=== PATIENT | female | born 1960 | race Caucasian/White ===

== ENCOUNTER → 2017-01-14 | Outpatient (CLI) | payer OTHER ==
--- NOTE | 2017-01-14 11:54 | REPMRS ---
Patient History The patient states she has not had a clinical breast exam in over a year. Patient is postmenopausal. Family history of colorectal cancer in brother at age 50 or over. Taking estrogen for 1 year. Digital Woman Screen Mammo: January 14, 2017 - Exam #: [id number] Bilateral CC and MLO view(s) were taken. Technologist: Jayda Bender, Technologist Prior study comparison: September 22, 2014, digital woman screen mammo performed at [facility]. July 20, 2012, digital woman screen mammo performed at [facility] to [facility]. FINDINGS: There are scattered fibroglandular densities. There has been no change in the appearance of the mammogram from the prior studies. There is a mild amount of scattered fibroglandular density which is fairly symmetric. There is no interval development of dominant mass, architectural distortion, or clustered microcalcification suggestive of malignancy. ASSESSMENT: BI-RADS/ACR category 1 mammogram. Negative. Recommendation Routine screening mammogram in 1 year (for women over age 40). This mammogram was interpreted with the aid of an FDA-approved computer-aided dectection system. Electronically Signed By: Ab Tyson MD 01/14/17 [id number]
== END ==
LOC: M WHC 10:24
PROVIDERS: ATTEND Family Medicine Addiction Medicine
DX: Z12.31 Encounter for screening mammogram for malignant neoplasm of breast (principal)

== ENCOUNTER → 2017-01-14 | Outpatient (CLI) | payer OTHER ==
[2017-01-14 14:35] LABS: ALBUMIN 3.8 GM/DL (3.2-5.2); ALBUMIN/GLOBULIN RATIO 1.15 (1.00-1.93); ALKALINE PHOSPHATASE 109 U/L (45-117); ALT/SGPT 28 U/L (12-78); ANION GAP 8 MEQ/L (8-16); AST/SGOT 14 U/L (15-37); BILIRUBIN,TOTAL 0.5 MG/DL (0.2-1.0); BLOOD UREA NITROGEN 16 MG/DL (7-18); CALCIUM LEVEL 8.9 MG/DL (8.5-10.1); CARBON DIOXIDE LEVEL 27 MEQ/L (21-32); CHLORIDE LEVEL 107 MEQ/L (98-107); CHOLESTEROL LEVEL 153 MG/DL (<200); CREATININE FOR GFR 0.89 MG/DL (0.55-1.02); GLOMERULAR FILTRATION RATE > 60.0 (>51); GLUCOSE, FASTING 97 MG/DL (70-105); POTASSIUM SERUM 4.1 MEQ/L (3.5-5.1); SODIUM LEVEL 142 MEQ/L (136-145); TOTAL PROTEIN 7.1 GM/DL (6.4-8.2); TRIGLYCERIDES LEVEL 143 MG/DL (<150)
== END ==
LOC: M WUC 09:57
PROVIDERS: ATTEND Family Medicine Addiction Medicine
DX: E55.9 Vitamin D deficiency, unspecified (principal); R79.89 Other specified abnormal findings of blood chemistry; E05.90 Thyrotoxicosis, unspecified without thyrotoxic crisis or storm

== ENCOUNTER → 2017-05-28 | Outpatient (CLI) | payer OTHER ==
--- NOTE | 2017-05-29 14:27 | REP ---
Clinical: Back pain. Technique: AP, lateral, coned-down views of the lumbosacral spine. Findings: Alignment and lordosis maintained. No acute fracture / compression injury or subluxation. Minimal age-related findings appreciated without significant, overt degenerative disc osteophyte changes. Impression: Age-related degenerative changes. If the patient remains symptomatic consider MRI for further investigation. Signed by Parish Small MD 05/28/2017 08:33 P
== END ==
LOC: M WUC 15:09
PROVIDERS: ATTEND Family Medicine Addiction Medicine
DX: M54.9 Dorsalgia, unspecified (principal); E55.9 Vitamin D deficiency, unspecified

== ENCOUNTER → 2017-07-08 | Outpatient (CLI) | payer OTHER ==
--- NOTE | 2017-07-10 09:06 | DEXA ---
AP SPINE L1 - L4 1.087 -0.9 0.1 LT FEMUR TOTAL 0.862 -1.2 -0.4 RT FEMUR TOTAL 0.857 -1.2 -0.4 TOTAL BODY TOTAL OTHER DUAL FEMUR FRAX* ASSESSMENT Risk factors: 10 year probability of fracture Major osteoporotic fracture % Hip fracture % COMMENTS: Normal bone densitometry of the spine. There is low bone density of the hips. FOLLOW-UP: Recommendation for the next bone density exam: 2 years. JYOTID
== END ==
LOC: M WHC 12:32
PROVIDERS: ATTEND Family Medicine Addiction Medicine
DX: E55.9 Vitamin D deficiency, unspecified (principal)

== ENCOUNTER → 2018-04-26 | Outpatient (REF) | payer OTHER, MEDICAID ==
[2018-04-26 18:49] LABS: ALBUMIN 4.1 GM/DL (3.2-5.2); ALBUMIN/GLOBULIN RATIO 1.17 (1.00-1.93); ALKALINE PHOSPHATASE 126 U/L (45-117); ALT/SGPT 32 U/L (12-78); ANION GAP 13 MEQ/L (8-16); AST/SGOT 17 U/L (7-37); BILIRUBIN,TOTAL 0.7 MG/DL (0.2-1.0); BLOOD UREA NITROGEN 20 MG/DL (7-18); CALCIUM LEVEL 9.3 MG/DL (8.5-10.1); CARBON DIOXIDE LEVEL 23 MEQ/L (21-32); CHLORIDE LEVEL 108 MEQ/L (98-107); CHOLESTEROL LEVEL 166 MG/DL (<200); CHOLESTEROL RISK RATIO 2.964 (<5); CREATININE FOR GFR 0.92 MG/DL (0.55-1.30); GLOMERULAR FILTRATION RATE > 60.0 (>51); GLUCOSE, FASTING 97 MG/DL (70-100); HDL CHOLESTEROL 56 MG/DL (>40); LDL CHOLESTEROL 85.4 MG/DL (<100); NON-HDL-C 110 MG/DL; POTASSIUM SERUM 4.4 MEQ/L (3.5-5.1); SODIUM LEVEL 144 MEQ/L (136-145); TOTAL PROTEIN 7.6 GM/DL (6.4-8.2); TRIGLYCERIDES LEVEL 123 MG/DL (<150)
[2018-04-26 18:57] LABS: TOTAL 25(OH) VITAMIN D 115.7 NG/ML (30.0-100.0)
== END ==
LOC: M LAB REF 17:15
DX: E05.90 Thyrotoxicosis, unspecified without thyrotoxic crisis or storm (principal); E55.9 Vitamin D deficiency, unspecified

== ENCOUNTER → 2018-12-23 | Outpatient (REF) | payer OTHER, MEDICAID ==
[2018-12-23 19:00] LABS: ALBUMIN 4.2 GM/DL (3.2-5.2); ALT/SGPT 30 U/L (12-78); BILIRUBIN,TOTAL 0.9 MG/DL (0.2-1.0); BLOOD UREA NITROGEN 14 MG/DL (7-18); CALCIUM LEVEL 8.9 MG/DL (8.5-10.1); CARBON DIOXIDE LEVEL 21 MEQ/L (21-32); CHLORIDE LEVEL 107 MEQ/L (98-107); CHOLESTEROL LEVEL 142 MG/DL (<200); CHOLESTEROL RISK RATIO 2.327 (<5); CREATININE FOR GFR 0.86 MG/DL (0.55-1.30); GLOMERULAR FILTRATION RATE > 60.0 (>51); GLUCOSE, FASTING 90 MG/DL (70-100); HDL CHOLESTEROL 61 MG/DL (>40); LDL CHOLESTEROL 61 MG/DL (<100); NON-HDL-C 81 MG/DL; POTASSIUM SERUM 3.7 MEQ/L (3.5-5.1); SODIUM LEVEL 139 MEQ/L (136-145); THYROID STIMULATING HORMONE 0.487 uIU/ML (0.358-3.740); TOTAL PROTEIN 7.4 GM/DL (6.4-8.2); TRIGLYCERIDES LEVEL 100 MG/DL (<150)
[2018-12-23 19:03] LABS: TOTAL 25(OH) VITAMIN D 52.3 NG/ML (30.0-100.0)
== END ==
LOC: M LAB REF 17:15
PROVIDERS: ATTEND Family Medicine Addiction Medicine
DX: E55.9 Vitamin D deficiency, unspecified (principal); E05.90 Thyrotoxicosis, unspecified without thyrotoxic crisis or storm

== ENCOUNTER 2019-04-25 11:25 | Emergency (ER) | payer MEDICAID, OTHER ==
[~2019-04-25] VITALS: Ht 157.5 cm; Wt 65.0 kg
[2019-04-25 12:16] LABS: BASO % 0.4 % (0.0-1.0); EOS # 0.3 10^3/uL (0.0-0.50); EOS % 2.6 % (0.0-3.0); HEMATOCRIT 41.6 % (36.0-47.0); HEMOGLOBIN 13.9 g/dl (12.0-15.5); LYMPH # 1.8 10^3/uL (1.5-4.5); MEAN CORPUSCULAR HEMOGLOBIN 32.4 pg (27.0-33.0); MEAN CORPUSCULAR HGB CONC 33.4 g/dl (32.0-36.5); MONO # 0.4 10^3/uL (0.0-0.8); MONO % 3.9 % (0.0-5.0); NEUTROPHILS # 8.7 10^3/uL (1.8-7.7); NEUTROPHILS % 76.7 % (36.0-66.0); PLATELET COUNT, AUTOMATED 437 10^3/uL (150-450); RED BLOOD COUNT 4.29 10^6/uL (4.00-5.40); WHITE BLOOD COUNT 11.4 10^3/uL (4.0-10.0)
[2019-04-25 12:42] LABS: ALBUMIN 4.4 GM/DL (3.2-5.2); BILIRUBIN,DIRECT 0.3 MG/DL (0.0-0.2); BILIRUBIN,TOTAL 1.1 MG/DL (0.2-1.0); CALCIUM LEVEL 9.8 MG/DL (8.5-10.1); CREATININE FOR GFR 1.1 MG/DL (0.55-1.30); GLOMERULAR FILTRATION RATE 54.1 (>51); POTASSIUM SERUM 4.2 MEQ/L (3.5-5.1); TOTAL PROTEIN 8.5 GM/DL (6.4-8.2)
--- NOTE | 2019-04-25 14:59 | REP ---
Clinical: Right flank pain. Technique: Axial noncontrast images from the lung bases to the pubic symphysis with coronal and sagittal re-formations. Findings: Right-sided hydroureteronephrosis with periureteral stranding secondary to a 5 mm calculus at the ureterovesical junction likely about to pass into the bladder. 2 mm nonobstructing right renal calculus is also identified. The left kidney is without hydroureteronephrosis or nephroureterolithiasis. Liver, spleen, atrophic pancreas, bilateral adrenal glands and gallbladder appear normal. The enteric system is without obstruction or acute inflammatory process. Pelvis demonstrates evidence for prior hysterectomy. No ascites. No free air. No adenopathy. Abdominal aorta without aneurysm. Musculoskeletal structures demonstrate age-related degenerative changes. Lung bases demonstrate right basilar linear fibroatelectatic change. Impression: 1. Moderate right-sided obstructive uropathy with a 5 mm calculus at the ureterovesical junction likely about to pass into the bladder. 2 mm nonobstructing right renal calculus. Electronically Signed by Parish Small MD 04/25/2019 02:51 P
[2019-04-25 15:25] VITALS: BP 158/94
[2019-04-25] MEDS ORDERED: FLOM0.4C39 PO (16:02)
[2019-04-25] MEDS ORDERED: ONDA4TAB6 PO (16:02)
[2019-04-25] MEDS ORDERED: BACT800T5 PO (16:02)
== END 2019-04-25 16:19 | disposition home or self-care (01) ==
LOC: M ED 11:25
DX: N39.0 Urinary tract infection, site not specified (principal); N20.0 Calculus of kidney; E86.0 Dehydration; J45.909 Unspecified asthma, uncomplicated; F33.9 Major depressive disorder, recurrent, unspecified; F41.9 Anxiety disorder, unspecified; E78.5 Hyperlipidemia, unspecified; K21.9 Gastro-esophageal reflux disease without esophagitis

== ENCOUNTER → 2019-05-06 | Outpatient (REF) | payer OTHER ==
[~2019-05-06] MED LIST: BACT800T5 PO; FLOM0.4C39 PO; ONDA4TAB6 PO
[2019-05-06 14:09] LABS: APPEARANCE, URINE CLEAR (CLEAR); BACTERIA, URINE AUTO NEGATIVE (NEGATIVE); BILIRUBIN, URINE AUTO NEGATIVE (NEGATIVE); BLOOD, URINE BLOOD 2+ (NEGATIVE); COLOR, URINE YELLOW (YELLOW); GLUCOSE, URINE (UA) AUTO NEGATIVE (NEGATIVE); KETONE, URINE AUTO NEGATIVE (NEGATIVE); LEUKOCYTE ESTERASE, URINE AUTO TRACE (NEGATIVE); MUCUS, URINE SMALL (NEGATIVE); NITRITE, URINE AUTO NEGATIVE (NEGATIVE); PROTEIN, URINE AUTO NEGATIVE (NEGATIVE); RBC, URINE AUTO 1 /HPF (0-3); SPECIFIC GRAVITY URINE AUTO 1.016 (1.002-1.035); SQUAMOUS EPITHELIAL CELL UR AU 0 /HPF (0-6); UROBILINOGEN, URINE AUTO 0.2 mg/dL (0.0-2.0); WBC, URINE AUTO 4 /HPF (0-3)
== END ==
LOC: M SMT 13:26
PROVIDERS: ATTEND Nurse Practitioner Family
DX: N20.0 Calculus of kidney (principal)

== ENCOUNTER → 2019-06-03 | Outpatient (CLI) | payer OTHER ==
--- NOTE | 2019-06-03 11:34 | REP ---
Clinical: Kidney stone. Technique: Two supine views of the abdomen and pelvis. Findings: No obvious urinary tract calcifications are appreciated. The bowel gas pattern is nonspecific. No organomegaly. No abnormal calcifications. Skeletal structures are intact. Impression: No obvious urinary tract calcifications appreciated. Electronically Signed by Parish Small MD 06/03/2019 11:26 A
[2019-06-03 14:00] LABS: APPEARANCE, URINE CLEAR (CLEAR); BACTERIA, URINE AUTO NEGATIVE (NEGATIVE); BILIRUBIN, URINE AUTO NEGATIVE (NEGATIVE); BLOOD, URINE BLOOD NEGATIVE (NEGATIVE); CALCIUM OXALATE CRYSTALS SMALL; COLOR, URINE YELLOW (YELLOW); GLUCOSE, URINE (UA) AUTO NEGATIVE (NEGATIVE); KETONE, URINE AUTO NEGATIVE (NEGATIVE); LEUKOCYTE ESTERASE, URINE AUTO TRACE (NEGATIVE); MUCUS, URINE SMALL (NEGATIVE); NITRITE, URINE AUTO NEGATIVE (NEGATIVE); PROTEIN, URINE AUTO NEGATIVE (NEGATIVE); RBC, URINE AUTO 3 /HPF (0-3); SPECIFIC GRAVITY URINE AUTO 1.025 (1.002-1.035); SQUAMOUS EPITHELIAL CELL UR AU 1 /HPF (0-6); WBC, URINE AUTO 3 /HPF (0-3)
== END ==
LOC: M SMT 11:15
PROVIDERS: ATTEND Nurse Practitioner Family
DX: Z87.442 Personal history of urinary calculi (principal)

== ENCOUNTER → 2019-06-10 | Outpatient (CLI) | payer OTHER ==
--- NOTE | 2019-06-10 13:56 | REP ---
DIAGNOSTIC MAMMOGRAM LEFT BREAST: Multiple spot compression views of the left breast are performed as well as the left ML view to evaluate possible tissue asymmetry in the posterior upper left breast as seen on the screening mammogram performed 05/04/2019, reportedly a mobile mammogram associated with [facility]. Comparison is made with multiple prior studies including 07/20/2012, 09/22/2014, and 01/14/2017. There is stable soft tissue fibroglandular asymmetry in the posterior upper left breast. There is no change compared back to prior study 07/20/2012. There is no new mass or architectural distortion. IMPRESSION: BIRADS 2: BI-RADS/ACR category 2 mammogram. Benign Findings. ACR 2 benign. Stable soft tissue fibroglandular asymmetry posteriorly in the upper left breast. No change since the 2011. Recommend followup mammogram in 1 year. This mammogram was interpreted with the aid of an FDA-approved computer-aided detection system. A. Negative x-ray reports should not delay biopsy if a dominant or clinically suspicious mass is present. B. Four to eight percent of cancers are not identified by x-ray. C. Adenosis and dense breasts may obscure an underlying neoplasm. The patient states that she or he has not had a clinical breast exam in over a year. The patient letter being requested is M1. Colin lifetime risk of breast cancer 5.7%. Electronically Signed by Marcos Bennett MD 06/10/2019 03:16 P
== END ==
LOC: M RAD 12:12
PROVIDERS: ATTEND Nurse Practitioner Family
DX: N64.59 Other signs and symptoms in breast (principal)
CPT/HCPCS: 77065; G0279

== ENCOUNTER → 2019-07-07 | Outpatient (REF) ==
[2019-07-07 13:44] LABS: BASO # 0.1 10^3/uL (0.0-0.2); BASO % 0.8 % (0.0-1.0); EOS # 0.3 10^3/uL (0.0-0.5); EOS % 4.7 % (0.0-3.0); HEMATOCRIT 41.3 % (36.0-47.0); HEMOGLOBIN 13.7 g/dl (12.0-15.5); LYMPH # 2.8 10^3/uL (1.5-5.0); LYMPH % 37.8 % (24.0-44.0); MEAN CORPUSCULAR HGB CONC 33.2 g/dl (32.0-36.5); MEAN CORPUSCULAR VOLUME 99.5 fl (80.0-96.0); MONO # 0.5 10^3/uL (0.0-0.8); MONO % 6.6 % (0.0-5.0); NEUTROPHILS # 3.6 10^3/uL (1.5-8.5); NEUTROPHILS % 49.8 % (36.0-66.0); PLATELET COUNT, AUTOMATED 476 10^3/uL (150-450); RED BLOOD COUNT 4.15 10^6/uL (4.00-5.40); WHITE BLOOD COUNT 7.3 10^3/uL (4.0-10.0)
== END ==
LOC: M LABSMT 13:22
PROVIDERS: ATTEND Allergy & Immunology Allergy
DX: J45.40 Moderate persistent asthma, uncomplicated (principal)

== ENCOUNTER → 2019-07-20 | Outpatient (CLI) | payer OTHER ==
--- NOTE | 2019-07-26 14:50 | DEXA ---
AP SPINE L1 - L4 1.028 -1.3 -0.2 LT FEMUR TOTAL 0.847 -1.3 -0.4 LT NECK 0.747 -2.1 -0.9 RT FEMUR TOTAL 0.853 -1.2 -0.4 RT NECK 0.717 -2.3 -1.1 TOTAL BODY TOTAL OTHER COMMENTS: There is low bone density of the spine and hips. The density of the spine has decreased 5.4% since 07/08/2017. The density of the left hip has decreased 1.7% since 07/08/2017. The density of the right hip has decreased 0.5% since 07/08/2017. The decreased density of the spine does represent a significant change. The decreased density of the left hip does not represent a significant change. The decreased density of the right hip does not represent a significant change. FOLLOW-UP: Recommendation for the next bone density exam: 2 years. BENJI
== END ==
LOC: M WHC 13:14
PROVIDERS: ATTEND Nurse Practitioner Family
DX: M85.88 Other specified disorders of bone density and structure, other site (principal); M85.851 Other specified disorders of bone density and structure, right thigh; M85.852 Other specified disorders of bone density and structure, left thigh

== ENCOUNTER → 2019-12-13 | Outpatient (REF) | payer OTHER, MEDICAID ==
[2019-12-13 12:08] LABS: BASO # 0.1 10^3/uL (0.0-0.2); EOS # 0.4 10^3/uL (0.0-0.5); EOS % 5.7 % (0.0-3.0); HEMATOCRIT 39.8 % (36.0-47.0); HEMOGLOBIN 13.6 g/dl (12.0-15.5); LYMPH # 2.5 10^3/uL (1.5-5.0); MEAN CORPUSCULAR HEMOGLOBIN 33.7 pg (27.0-33.0); MEAN CORPUSCULAR HGB CONC 34.2 g/dl (32.0-36.5); MEAN CORPUSCULAR VOLUME 98.5 fl (80.0-96.0); MONO # 0.4 10^3/uL (0.0-0.8); MONO % 5.7 % (0.0-5.0); NEUTROPHILS # 3.8 10^3/uL (1.5-8.5); NEUTROPHILS % 52.3 % (36.0-66.0); PLATELET COUNT, AUTOMATED 518 10^3/uL (150-450); RED BLOOD COUNT 4.04 10^6/uL (4.00-5.40); WHITE BLOOD COUNT 7.2 10^3/uL (4.0-10.0)
[2019-12-13 12:30] LABS: HEMOGLOBIN A1c 5.9 %
[2019-12-13 12:44] LABS: ALBUMIN 4.1 GM/DL (3.2-5.2); BILIRUBIN,TOTAL 0.7 MG/DL (0.2-1.0); CALCIUM LEVEL 9.6 MG/DL (8.5-10.1); CHOLESTEROL RISK RATIO 2.909 (<5); CREATININE FOR GFR 1.02 MG/DL (0.55-1.30); FREE T4 1.18 NG/DL (0.76-1.46); POTASSIUM SERUM 3.8 MEQ/L (3.5-5.1); THYROID STIMULATING HORMONE 0.86 uIU/ML (0.358-3.740); TOTAL PROTEIN 7.5 GM/DL (6.4-8.2)
[2019-12-13 12:46] LABS: TOTAL 25(OH) VITAMIN D 42.1 NG/ML (30.0-100.0)
== END ==
LOC: M LAB REF 11:43
PROVIDERS: ATTEND Nurse Practitioner Family
DX: Z00.01 Encounter for general adult medical examination with abnormal findings (principal)

== ENCOUNTER → 2020-03-14 | Outpatient (REF) | payer OTHER, MEDICAID ==
[2020-03-14 14:01] LABS: BASO # 0.1 10^3/uL (0.0-0.2); BASO % 0.8 % (0.0-1.0); EOS # 0.4 10^3/uL (0.0-0.5); EOS % 6.3 % (0.0-3.0); HEMATOCRIT 39.3 % (36.0-47.0); HEMOGLOBIN 13.1 g/dl (12.0-15.5); LYMPH # 3.4 10^3/uL (1.5-5.0); LYMPH % 51.5 % (24.0-44.0); MEAN CORPUSCULAR HGB CONC 33.3 g/dl (32.0-36.5); MONO # 0.4 10^3/uL (0.0-0.8); MONO % 5.8 % (0.0-5.0); NEUTROPHILS # 2.3 10^3/uL (1.5-8.5); NEUTROPHILS % 35.4 % (36.0-66.0); PLATELET COUNT, AUTOMATED 138 10^3/uL (150-450); RED BLOOD COUNT 3.97 10^6/uL (4.00-5.40); WHITE BLOOD COUNT 6.5 10^3/uL (4.0-10.0)
[2020-03-14 14:23] LABS: BILIRUBIN,TOTAL 0.7 MG/DL (0.2-1.0); CALCIUM LEVEL 9.5 MG/DL (8.5-10.1); CHOLESTEROL RISK RATIO 2.979 (<5); CREATININE FOR GFR 1.05 MG/DL (0.55-1.30); FREE T4 1.31 NG/DL (0.76-1.46); GLOMERULAR FILTRATION RATE 57.1 (>51); POTASSIUM SERUM 3.9 MEQ/L (3.5-5.1); THYROID STIMULATING HORMONE 1.1 uIU/ML (0.358-3.740)
== END ==
LOC: M LAB REF 11:42
PROVIDERS: ATTEND Nurse Practitioner Family
DX: R73.03 Prediabetes (principal); R79.89 Other specified abnormal findings of blood chemistry; E05.90 Thyrotoxicosis, unspecified without thyrotoxic crisis or storm; J30.9 Allergic rhinitis, unspecified

== ENCOUNTER → 2020-07-03 | Outpatient (REF) | payer OTHER, MEDICAID ==
[2020-07-03 17:11] LABS: BASO # 0.1 10^3/uL (0.0-0.2); BASO % 0.9 % (0.0-1.0); EOS # 0.2 10^3/uL (0.0-0.5); EOS % 3.7 % (0.0-3.0); HEMATOCRIT 39.7 % (36.0-47.0); HEMOGLOBIN 13.2 g/dl (12.0-15.5); LYMPH # 2.2 10^3/uL (1.5-5.0); LYMPH % 33.1 % (24.0-44.0); MEAN CORPUSCULAR HEMOGLOBIN 33.2 pg (27.0-33.0); MEAN CORPUSCULAR HGB CONC 33.2 g/dl (32.0-36.5); MEAN CORPUSCULAR VOLUME 99.7 fl (80.0-96.0); MONO # 0.4 10^3/uL (0.0-0.8); MONO % 6.4 % (0.0-5.0); NEUTROPHILS # 3.7 10^3/uL (1.5-8.5); NEUTROPHILS % 55.9 % (36.0-66.0); PLATELET COUNT, AUTOMATED 353 10^3/uL (150-450); RED BLOOD COUNT 3.98 10^6/uL (4.00-5.40); WHITE BLOOD COUNT 6.5 10^3/uL (4.0-10.0)
[2020-07-03 17:46] LABS: ALBUMIN 4.1 GM/DL (3.2-5.2); ALT/SGPT 32 U/L (12-78); BILIRUBIN,TOTAL 0.7 MG/DL (0.2-1.0); BLOOD UREA NITROGEN 19 MG/DL (7-18); CALCIUM LEVEL 9.2 MG/DL (8.8-10.2); CARBON DIOXIDE LEVEL 26 MEQ/L (21-32); CHLORIDE LEVEL 109 MEQ/L (98-107); CHOLESTEROL LEVEL 145 MG/DL (<200); CHOLESTEROL RISK RATIO 2.636 (<5); CREATININE FOR GFR 0.99 MG/DL (0.55-1.30); GLOMERULAR FILTRATION RATE > 60.0 (>45); GLUCOSE, FASTING 93 MG/DL (70-100); HDL CHOLESTEROL 55 MG/DL (>40); LDL CHOLESTEROL 71 MG/DL (<100); NON-HDL-C 90 MG/DL; POTASSIUM SERUM 4.9 MEQ/L (3.5-5.1); SODIUM LEVEL 141 MEQ/L (136-145); TOTAL PROTEIN 7.2 GM/DL (6.4-8.2); TRIGLYCERIDES LEVEL 96 MG/DL (<150)
[2020-07-03 17:52] LABS: HEMOGLOBIN A1c 5.6 %
== END ==
LOC: M LAB REF 16:37
PROVIDERS: ATTEND Nurse Practitioner Family
DX: E78.5 Hyperlipidemia, unspecified (principal); L85.3 Xerosis cutis; Z13.9 Encounter for screening, unspecified

== ENCOUNTER → 2020-11-13 | Outpatient (REF) | payer OTHER, MEDICAID ==
[2020-11-13 17:03] LABS: BASO # 0.1 10^3/uL (0.0-0.2); BASO % 0.9 % (0.0-1.0); EOS # 0.4 10^3/uL (0.0-0.5); EOS % 5.8 % (0.0-3.0); HEMATOCRIT 37.2 % (36.0-47.0); HEMOGLOBIN 12.5 g/dl (12.0-15.5); LYMPH # 2.4 10^3/uL (1.5-5.0); MEAN CORPUSCULAR HEMOGLOBIN 34.1 pg (27.0-33.0); MEAN CORPUSCULAR HGB CONC 33.6 g/dl (32.0-36.5); MEAN CORPUSCULAR VOLUME 101.4 fl (80.0-96.0); MONO # 0.4 10^3/uL (0.0-0.8); NEUTROPHILS # 3.4 10^3/uL (1.5-8.5); PLATELET COUNT, AUTOMATED 456 10^3/uL (150-450); RED BLOOD COUNT 3.67 10^6/uL (4.00-5.40); WHITE BLOOD COUNT 6.7 10^3/uL (4.0-10.0)
[2020-11-13 17:26] LABS: HEMOGLOBIN A1c 5.6 %
[2020-11-13 17:33] LABS: ALBUMIN 4.1 GM/DL (3.2-5.2); ALT/SGPT 35 U/L (12-78); BILIRUBIN,TOTAL 0.5 MG/DL (0.2-1.0); BLOOD UREA NITROGEN 15 MG/DL (7-18); CALCIUM LEVEL 9.7 MG/DL (8.8-10.2); CARBON DIOXIDE LEVEL 26 MEQ/L (21-32); CHLORIDE LEVEL 109 MEQ/L (98-107); CHOLESTEROL LEVEL 148 MG/DL (<200); CHOLESTEROL RISK RATIO 2.508 (<5); CREATININE FOR GFR 0.94 MG/DL (0.55-1.30); GLOMERULAR FILTRATION RATE > 60.0 (>45); GLUCOSE, FASTING 98 MG/DL (70-100); HDL CHOLESTEROL 59 MG/DL (>40); LDL CHOLESTEROL 71 MG/DL (<100); NON-HDL-C 89 MG/DL; POTASSIUM SERUM 4.7 MEQ/L (3.5-5.1); SODIUM LEVEL 141 MEQ/L (136-145); TRIGLYCERIDES LEVEL 88 MG/DL (<150)
== END ==
LOC: M LAB REF 16:28
PROVIDERS: ATTEND Nurse Practitioner Family
DX: E78.5 Hyperlipidemia, unspecified (principal); R73.03 Prediabetes

== ENCOUNTER → 2021-03-26 | Outpatient (REF) | payer OTHER, MEDICAID ==
[2021-03-26 17:15] LABS: BASO # 0.1 10^3/uL (0.0-0.2); BASO % 1.1 % (0.0-1.0); EOS # 0.4 10^3/uL (0.0-0.5); EOS % 8.4 % (0.0-3.0); HEMATOCRIT 41.2 % (36.0-47.0); HEMOGLOBIN 14.1 g/dl (12.0-15.5); LYMPH # 1.7 10^3/uL (1.5-5.0); LYMPH % 35.5 % (24.0-44.0); MEAN CORPUSCULAR HEMOGLOBIN 33.3 pg (27.0-33.0); MEAN CORPUSCULAR HGB CONC 34.2 g/dl (32.0-36.5); MEAN CORPUSCULAR VOLUME 97.2 fl (80.0-96.0); MONO # 0.4 10^3/uL (0.0-0.8); NEUTROPHILS # 2.2 10^3/uL (1.5-8.5); NEUTROPHILS % 46.8 % (36.0-66.0); PLATELET COUNT, AUTOMATED 371 10^3/uL (150-450); RED BLOOD COUNT 4.24 10^6/uL (4.00-5.40); WHITE BLOOD COUNT 4.8 10^3/uL (4.0-10.0)
[2021-03-26 17:48] LABS: BILIRUBIN,TOTAL 0.6 MG/DL (0.2-1.0); CALCIUM LEVEL 9.7 MG/DL (8.8-10.2); CHOLESTEROL RISK RATIO 2.745 (<5); CREATININE FOR GFR 1.11 MG/DL (0.55-1.30); GLOMERULAR FILTRATION RATE 53.4 (>45); POTASSIUM SERUM 4.3 MEQ/L (3.5-5.1); TOTAL PROTEIN 7.6 GM/DL (6.4-8.2)
[2021-03-26 17:50] LABS: TOTAL 25(OH) VITAMIN D 41.8 NG/ML (30.0-100.0)
[2021-03-26 18:50] LABS: HEMOGLOBIN A1c 5.6 %
== END ==
LOC: M LAB REF 16:25
PROVIDERS: ATTEND Nurse Practitioner Family
DX: I10 Essential (primary) hypertension (principal); J30.9 Allergic rhinitis, unspecified; R73.03 Prediabetes

== ENCOUNTER → 2022-02-28 | Outpatient (CLI) | payer OTHER | LOC: M WHC 13:06 | PROVIDERS: ATTEND Nurse Practitioner Family | DX: Z12.31 Encounter for screening mammogram for malignant neoplasm of breast (principal); Z80.0 Family history of malignant neoplasm of digestive organs ==

== ENCOUNTER → 2022-09-04 | Outpatient (REF) | payer OTHER ==
[2022-09-04 13:36] LABS: CHOLESTEROL RISK RATIO 3.1 (<5); HDL CHOLESTEROL 50.3 MG/DL (>40); LDL CHOLESTEROL 80.7 MG/DL (<100)
== END ==
LOC: M LAB REF 12:34
PROVIDERS: ATTEND Nurse Practitioner Family
DX: I10 Essential (primary) hypertension (principal); R73.03 Prediabetes; J30.9 Allergic rhinitis, unspecified

== ENCOUNTER → 2022-10-09 | Outpatient (CLI) | payer OTHER | LOC: M WHC 10:59 | PROVIDERS: ATTEND Nurse Practitioner Family | DX: Z13.820 Encounter for screening for osteoporosis (principal); M85.89 Other specified disorders of bone density and structure, multiple sites ==

== ENCOUNTER → 2022-10-21 | Outpatient (CLI) | payer OTHER | LOC: M WUC 14:54 | PROVIDERS: ATTEND Nurse Practitioner Family | DX: M54.30 Sciatica, unspecified side (principal); N20.0 Calculus of kidney ==

== ENCOUNTER → 2023-04-09 | Outpatient (REF) | payer OTHER ==
[2023-04-09 13:27] LABS: BASO # 0.1 10^3/uL (0.0-0.2); BASO % 0.8 % (0.0-1.0); EOS # 0.4 10^3/uL (0.0-0.5); EOS % 5.5 % (0.0-3.0); HEMATOCRIT 39.2 % (36.0-47.0); LYMPH # 2.1 10^3/uL (1.5-5.0); LYMPH % 32.5 % (24.0-44.0); MEAN CORPUSCULAR HEMOGLOBIN 32.9 pg (27.0-33.0); MEAN CORPUSCULAR HGB CONC 33.2 g/dl (32.0-36.5); MEAN CORPUSCULAR VOLUME 99.2 fl (80.0-96.0); MONO # 0.4 10^3/uL (0.0-0.8); NEUTROPHILS # 3.6 10^3/uL (1.5-8.5); PLATELET COUNT, AUTOMATED 440 10^3/uL (150-450); RED BLOOD COUNT 3.95 10^6/uL (4.00-5.40); WHITE BLOOD COUNT 6.5 10^3/uL (4.0-10.0)
[2023-04-09 13:34] LABS: TOTAL 25(OH) VITAMIN D 53.9 NG/ML (20.0-100.0)
[2023-04-09 13:38] LABS: ALBUMIN 4.1 G/DL (3.2-5.2); ALKALINE PHOSPHATASE 120 U/L (46-116); ALT/SGPT 22 U/L (7.0-40); AST/SGOT 13 U/L (<34); BLOOD UREA NITROGEN 16 MG/DL (9-23); CALCIUM LEVEL 9.3 MG/DL (8.3-10.6); CARBON DIOXIDE LEVEL 27 MMOL/L (20-31); CHLORIDE LEVEL 106 MMOL/L (98-107); CHOLESTEROL LEVEL 176 MG/DL (<200); CHOLESTEROL RISK RATIO 3.84 (<5); GLOMERULAR FILTRATION RATE > 60.0 (>45); GLUCOSE, FASTING 102 MG/DL (74-106); HDL CHOLESTEROL 45.8 MG/DL (>40); LDL CHOLESTEROL 102.2 MG/DL (<100); NON-HDL-C 130.2 MG/DL; SODIUM LEVEL 140 MMOL/L (136-145); TOTAL PROTEIN 6.8 G/DL (5.7-8.2); TRIGLYCERIDES LEVEL 140 MG/DL (<150)
== END ==
LOC: M LAB REF 12:23
PROVIDERS: ATTEND Nurse Practitioner Family
DX: Z13.228 Encounter for screening for other metabolic disorders (principal); E55.9 Vitamin D deficiency, unspecified

== ENCOUNTER → 2024-01-25 | Outpatient (REF) | payer OTHER ==
[2024-01-25 18:32] LABS: CHOLESTEROL RISK RATIO 3.17 (<5); HDL CHOLESTEROL 51.7 MG/DL (>40); LDL CHOLESTEROL 87.7 MG/DL (<100); NON-HDL-C 112.3 MG/DL
== END ==
LOC: M LAB REF 16:40
PROVIDERS: ATTEND Nurse Practitioner Family
DX: R73.03 Prediabetes (principal); J30.9 Allergic rhinitis, unspecified; I10 Essential (primary) hypertension

== ENCOUNTER → 2024-06-02 | Outpatient (REF) | payer OTHER ==
[~2024-06-02] MED LIST changes: +ONDA-282 PO; -ONDA4TAB6 PO
[2024-06-02 18:56] LABS: BASO # 0.1 10^3/uL (0.0-0.2); BASO % 1.1 % (0.0-1.0); EOS # 0.3 10^3/uL (0.0-0.5); EOS % 4.7 % (0.0-3.0); HEMATOCRIT 37.1 % (36.0-47.0); HEMOGLOBIN 12.7 g/dl (12.0-15.5); LYMPH # 1.9 10^3/uL (1.5-5.0); LYMPH % 34.1 % (24.0-44.0); MEAN CORPUSCULAR HEMOGLOBIN 33.2 pg (27.0-33.0); MEAN CORPUSCULAR HGB CONC 34.2 g/dl (32.0-36.5); MEAN CORPUSCULAR VOLUME 97.1 fl (80.0-96.0); MONO # 0.3 10^3/uL (0.0-0.8); MONO % 5.9 % (2.0-8.0); PLATELET COUNT, AUTOMATED 469 10^3/uL (150-450); RED BLOOD COUNT 3.82 10^6/uL (4.00-5.40); WHITE BLOOD COUNT 5.6 10^3/uL (4.0-10.0)
[2024-06-02 19:21] LABS: ALBUMIN 4.2 G/DL (3.2-5.2); ALKALINE PHOSPHATASE 128 U/L (46-116); ALT/SGPT 40 U/L (7.0-40); AST/SGOT 23 U/L (<34); BILIRUBIN,TOTAL 0.9 MG/DL (0.3-1.2); BLOOD UREA NITROGEN 18 MG/DL (9-23); CALCIUM LEVEL 10.3 MG/DL (8.3-10.6); CARBON DIOXIDE LEVEL 26 MMOL/L (20-31); CHLORIDE LEVEL 108 MMOL/L (98-107); CHOLESTEROL LEVEL 151 MG/DL (<200); CHOLESTEROL RISK RATIO 2.63 (<5); CREATININE FOR GFR 0.88 MG/DL (0.55-1.30); GLOMERULAR FILTRATION RATE > 60.0 (>45); GLUCOSE, FASTING 106 MG/DL (74-106); HDL CHOLESTEROL 57.2 MG/DL (>40); LDL CHOLESTEROL 73.4 MG/DL (<100); MAGNESIUM LEVEL 1.9 MG/DL (1.8-2.4); NON-HDL-C 93.8 MG/DL; POTASSIUM SERUM 4.6 MMOL/L (3.5-5.1); SODIUM LEVEL 141 MMOL/L (136-145); TOTAL PROTEIN 7.2 G/DL (5.7-8.2); TRIGLYCERIDES LEVEL 102 MG/DL (<150)
[2024-06-02 19:25] LABS: THYROID STIMULATING HORMONE 0.558 uIU/ML (0.55-4.78)
[2024-06-02 19:38] LABS: HEMOGLOBIN A1c 5.6 % (4.0-6.0)
== END ==
LOC: M LAB REF 16:31
PROVIDERS: ATTEND Nurse Practitioner Family
DX: I10 Essential (primary) hypertension (principal); J30.9 Allergic rhinitis, unspecified; R73.03 Prediabetes; E66.3 Overweight